=== PATIENT | female | born 1995 | race African-American/Black ===

== ENCOUNTER 2021-12-09 20:17 | Emergency (ER) | payer MEDICAID, OTHER ==
[~2021-12-09] VITALS: Ht 172.7 cm; Wt 65.9 kg
[2021-12-09 21:04] VITALS: BP 130/89
== END 2021-12-10 01:33 | disposition left against medical advice (07) ==
LOC: ER 20:21
DX: J02.9 Acute pharyngitis, unspecified (principal); Z53.21 Procedure and treatment not carried out due to patient leaving prior to being seen by health care provider
CPT/HCPCS: 36415; 87070; 87426; 87804; 87880